=== PATIENT | female | born 1965 | race Caucasian/White ===

== ENCOUNTER 2021-02-07 14:18 | Observation (INO) | payer OTHER ==
[2021-02-07 16:13] VITALS: BMI 30.9
[2021-02-07] MEDS ORDERED: hydrALAZINE 20 MG/ML VIAL SLOW IVP PRN (16:31)
[2021-02-07] MEDS ORDERED: Dextrose 5% in Water 1,000 ML IV PRN (16:31)
[2021-02-07] MEDS ORDERED: Ondansetron PF 4 MG/2 ML Vial IVP PRN (16:31)
[2021-02-07] MEDS ORDERED: Ondansetron ODT 4 MG TAB PO PRN (16:31)
[2021-02-07] MEDS ORDERED: Dextrose 50% Abboject 50 ML SYRINGE SLOW IVP PRN (16:31)
[2021-02-07] MEDS ORDERED: HumaLOG 300 UNITS/3 ML VIAL SC PRN ×2 (16:31)
[2021-02-07] MEDS ORDERED: Ibuprofen 200 MG TAB PO PRN (16:31)
[2021-02-07] MEDS ORDERED: Acetaminophen 500 MG TAB PO PRN (16:31)
[2021-02-07 16:44] LABS: Troponin I 0.052 ng/mL (< 0.028)
[2021-02-07] MEDS: Famotidine 20 MG TAB PO SCH (20:53)
[2021-02-08 00:47] LABS: SARS-CoV-2 PCR by NAA Not Detected (NotDetected)
[2021-02-08 05:44] LABS: #Basophils 0.1 thou/uL (0.0-0.2); #Eosinphils 0.3 thou/uL (0.0-0.7); #Lymphocytes 2.3 thou/uL (1.20-3.40); #Monocytes 0.5 thou/uL (0.11-0.59); #Neutrophils 2.6 thou/uL (1.40-6.50); %Basophils 1.1 % (0.0-1.0); %Eosinophils 4.5 % (0.0-10.0); %Lymphocytes 40.4 % (21.0-51.0); %Monocytes 8.7 % (0.0-10.0); %Neutrophils 45.4 % (42.0-75.0); Hemoglobin 13.2 g/dL (12.0-16.0); Mean Corpuscular HGB CONC 32.7 g/dL (32.0-36.0); Mean Corpuscular Hemoglobin 29.1 pg (27.0-31.0); Mean Corpuscular Volume 88.9 fL (78.0-98.0); Mean Platelet Volume 8.8 fL (7.4-10.4); Platelet Count 117 thou/uL (130-400); RBC Distribution Width 13.8 % (11.5-14.5); Red Blood Cell (RBC) Count 4.53 mill/uL (4.20-5.40); White Blood Cell (WBC) Count 5.7 thou/uL (4.8-10.8)
[2021-02-08 05:59] LABS: Anion Gap 12 mmol/L (10-20); BUN (Urea Nitrogen) 12 mg/dL (9.8-20.1); Calc. Creatinine Clearance 133 mL/min (70-130); Calcium 9.2 mg/dL (7.8-10.44); Carbon Dioxide 21 mmol/L (22-29); Cardiac Risk 3.6 (Less than 4.5); Chloride 107 mmol/L (98-107); Cholesterol 192 mg/dl (< 200 Desired); Glucose 154 mg/dL (70-105); HDL Cholesterol 54 mg/dL (>60 Neg Risk); LDL Cholesterol, Calculated 124 mg/dL; Potassium 3.6 mmol/L (3.5-5.1); Sodium 136 mmol/L (136-145); Triglycerides 70 mg/dL (Less than 150)
[2021-02-08 08:02] VITALS: TEMP 98
[2021-02-08] MEDS ORDERED: Pioglitazone HCl 15 MG TAB PO SCH (09:00)
[2021-02-08] MEDS ORDERED: Aspirin Chewable 81 MG TAB PO SCH (09:00)
[2021-02-08] MEDS ORDERED: Alogliptin 25 MG TAB PO SCH (09:00)
[2021-02-08] MEDS ORDERED: ADENOSINE 60 MG/20 ML VIAL ONE (10:11)
[2021-02-08] MEDS: Famotidine 20 MG TAB PO SCH (15:25)
[2021-02-08 15:34] VITALS: BP 137/68
== END 2021-02-08 17:46 | disposition home or self-care (01) ==
LOC: 2SW 15:19 → INTOOBSV 16:31 → OBSVTOIN 16:31
PROVIDERS: ADMIT Family Medicine; ATTEND Hospitalist
DX: R07.89 Other chest pain (principal); E11.9 Type 2 diabetes mellitus without complications; K21.9 Gastro-esophageal reflux disease without esophagitis; K74.60 Unspecified cirrhosis of liver; E83.119 Hemochromatosis, unspecified; F15.11 Other stimulant abuse, in remission; F10.11 Alcohol abuse, in remission; Z79.84 Long term (current) use of oral hypoglycemic drugs; Z79.899 Other long term (current) drug therapy; Z88.0 Allergy status to penicillin; Z88.1 Allergy status to other antibiotic agents; Z20.822 Contact with and (suspected) exposure to COVID-19
CPT/HCPCS: 36415; 36416; 78452; 80048; 80061; 85025; 87635; 93017; 94760; A9500; G0378; J0153; U0003; U0005

== ENCOUNTER 2021-08-27 09:51 | Inpatient (IN) | payer OTHER ==
[2021-08-27] MEDS ORDERED: Iopamidol-370 76% 500 ML 1 ML ONE (10:14)
[2021-08-27 10:59] LABS: #Basophils 0.1 thou/uL (0.0-0.2); #Eosinphils 0.1 thou/uL (0.0-0.7); #Lymphocytes 1.6 thou/uL (1.20-3.40); #Monocytes 0.5 thou/uL (0.11-0.59); #Neutrophils 3.6 thou/uL (1.40-6.50); %Eosinophils 1.9 % (0.0-10.0); %Lymphocytes 27.7 % (21.0-51.0); %Monocytes 8.7 % (0.0-10.0); %Neutrophils 60.8 % (42.0-75.0); Hemoglobin 14.6 g/dL (12.0-16.0); Mean Corpuscular HGB CONC 34.1 g/dL (32.0-36.0); Mean Corpuscular Hemoglobin 31.2 pg (27.0-31.0); Mean Corpuscular Volume 91.5 fL (78.0-98.0); Mean Platelet Volume 8.7 fL (7.4-10.4); Platelet Count 104 thou/uL (130-400); RBC Distribution Width 13.7 % (11.5-14.5); Red Blood Cell (RBC) Count 4.68 mill/uL (4.20-5.40); White Blood Cell (WBC) Count 5.9 thou/uL (4.8-10.8)
[2021-08-27 11:23] LABS: ALT (SGPT) 90 U/L (8-55); AST (SGOT) 113 U/L (5-34); Albumin 3.7 g/dL (3.5-5.0); Alkaline Phosphatase 208 U/L (40-110); Anion Gap 14 mmol/L (10-20); BUN (Urea Nitrogen) 12 mg/dL (9.8-20.1); Bilirubin, Total 2.6 mg/dL (0.2-1.2); Calc. Creatinine Clearance 0 mL/min (70-130); Calcium 9.3 mg/dL (7.8-10.44); Carbon Dioxide 23 mmol/L (22-29); Chloride 107 mmol/L (98-107); Glucose 122 mg/dL (70-105); Lipase 19 U/L (8-78); Potassium 4.1 mmol/L (3.5-5.1); Protein, Total 7.7 g/dL (6.0-8.3); Sodium 140 mmol/L (136-145)
[2021-08-27] MEDS ORDERED: Ondansetron PF 4 MG/2 ML Vial ONE (11:45)
[2021-08-27] MEDS ORDERED: Morphine 4 MG/ML VIAL ONE (11:45)
[2021-08-27 12:20] LABS: Bilirubin Negative (Negative); Blood, Urine Negative (Negative); Clarity Clear (Clear); Glucose, Urine (Dipstick) 300 mg/dL (Negative); Ketone, Urine Negative (Negative); Leukocyte Negative Leu/uL (Negative); Nitrite Negative (Negative); Protein, Urine (Dipstick) 20 mg/dL (Neg-Trace); Specific Gravity, Urine 1.025 (1.002-1.036)
[2021-08-27] MEDS ORDERED: metroNIDAZOLE 500 MG in Premix Bag 1 BAG IVPB SCH ×2 (13:15→14:00)
[2021-08-27] MEDS ORDERED: Vancomycin HCl 25 MG/ML Oral PO SCH (13:15)
[2021-08-27] MEDS ORDERED: HumaLOG 300 UNITS/3 ML VIAL SC PRN (13:28)
[2021-08-27] MEDS ORDERED: Dextrose 5% in Water 1,000 ML IV PRN (13:28)
[2021-08-27] MEDS ORDERED: Dextrose 50% Abboject 50 ML SYRINGE SLOW IVP PRN (13:28)
[2021-08-27] MEDS: Sodium Chloride 0.9% 1,000 ML IV SCH (14:37)
[2021-08-27] MEDS: Morphine 4 MG/ML VIAL SLOW IVP PRN ×2 (15:40→20:09)
[2021-08-27 15:49] VITALS: BMI 31.2
[2021-08-27] MEDS: Vancomycin HCl 25 MG/ML Oral PO SCH (20:11)
[2021-08-27] MEDS: metroNIDAZOLE 500 MG TAB PO SCH (20:11)
[2021-08-28] MEDS: Vancomycin HCl 25 MG/ML Oral PO SCH ×5 (01:40→20:09)
[2021-08-28] MEDS: Morphine 4 MG/ML VIAL SLOW IVP PRN ×4 (04:20→20:08)
[2021-08-28] MEDS: Sodium Chloride 0.9% 1,000 ML IV SCH ×2 (04:22→15:14)
[2021-08-28] MEDS: metroNIDAZOLE 500 MG TAB PO SCH ×3 (05:07→20:09)
[2021-08-28 07:41] LABS: Anion Gap 11 mmol/L (10-20); BUN (Urea Nitrogen) 8 mg/dL (9.8-20.1); Calc. Creatinine Clearance 139 mL/min (70-130); Calcium 8.8 mg/dL (7.8-10.44); Carbon Dioxide 26 mmol/L (22-29); Chloride 107 mmol/L (98-107); Glucose 110 mg/dL (70-105); Potassium 3.5 mmol/L (3.5-5.1); Sodium 140 mmol/L (136-145)
[2021-08-28 07:49] LABS: #Eosinphils 0.2 thou/uL (0.0-0.7); #Lymphocytes 1.3 thou/uL (1.20-3.40); #Monocytes 0.6 thou/uL (0.11-0.59); #Neutrophils 2.6 thou/uL (1.40-6.50); %Basophils 0.8 % (0.0-1.0); %Eosinophils 3.3 % (0.0-10.0); %Neutrophils 54.9 % (42.0-75.0); Hemoglobin 13.2 g/dL (12.0-16.0); Mean Corpuscular Hemoglobin 31.5 pg (27.0-31.0); Mean Corpuscular Volume 92.7 fL (78.0-98.0); Mean Platelet Volume 9.2 fL (7.4-10.4); Platelet Count 89 thou/uL (130-400); RBC Distribution Width 13.9 % (11.5-14.5); Red Blood Cell (RBC) Count 4.21 mill/uL (4.20-5.40); White Blood Cell (WBC) Count 4.8 thou/uL (4.8-10.8)
[2021-08-28] MEDS: Enoxaparin Sodium 40 MG/0.4 ML SYRINGE SC SCH (09:26)
[2021-08-28] MEDS: Ondansetron PF 4 MG/2 ML Vial IVP PRN ×2 (09:45→18:12)
[2021-08-28 14:29] LABS: SARS-CoV-2 PCR by NAA Not Detected (NotDetected)
[2021-08-29] MEDS: Vancomycin HCl 25 MG/ML Oral PO SCH ×4 (02:03→20:19)
[2021-08-29] MEDS: Morphine 4 MG/ML VIAL SLOW IVP PRN ×4 (04:40→20:20)
[2021-08-29] MEDS: metroNIDAZOLE 500 MG TAB PO SCH ×3 (04:41→20:19)
[2021-08-29 07:06] LABS: #Eosinphils 0.2 thou/uL (0.0-0.7); #Lymphocytes 1.4 thou/uL (1.20-3.40); #Monocytes 0.5 thou/uL (0.11-0.59); #Neutrophils 2.1 thou/uL (1.40-6.50); %Eosinophils 3.8 % (0.0-10.0); %Lymphocytes 32.7 % (21.0-51.0); %Monocytes 11.3 % (0.0-10.0); %Neutrophils 51.2 % (42.0-75.0); Hemoglobin 13.2 g/dL (12.0-16.0); Mean Corpuscular HGB CONC 33.9 g/dL (32.0-36.0); Mean Corpuscular Hemoglobin 31.6 pg (27.0-31.0); Mean Corpuscular Volume 93.1 fL (78.0-98.0); Mean Platelet Volume 8.9 fL (7.4-10.4); Platelet Count 91 thou/uL (130-400); RBC Distribution Width 13.6 % (11.5-14.5); Red Blood Cell (RBC) Count 4.18 mill/uL (4.20-5.40); White Blood Cell (WBC) Count 4.2 thou/uL (4.8-10.8)
[2021-08-29 07:11] LABS: Anion Gap 10 mmol/L (10-20); BUN (Urea Nitrogen) 7 mg/dL (9.8-20.1); Calc. Creatinine Clearance 147 mL/min (70-130); Calcium 8.6 mg/dL (7.8-10.44); Carbon Dioxide 24 mmol/L (22-29); Chloride 108 mmol/L (98-107); Glucose 104 mg/dL (70-105); Potassium 3.4 mmol/L (3.5-5.1); Sodium 139 mmol/L (136-145)
[2021-08-29] MEDS: Enoxaparin Sodium 40 MG/0.4 ML SYRINGE SC SCH (09:38)
[2021-08-29] MEDS: Sodium Chloride 0.9% 1,000 ML IV SCH ×2 (09:41→20:21)
[2021-08-29] MEDS: Ondansetron PF 4 MG/2 ML Vial IVP PRN (09:50)
[2021-08-30] MEDS: Morphine 4 MG/ML VIAL SLOW IVP PRN ×4 (01:46→23:37)
[2021-08-30] MEDS: Vancomycin HCl 25 MG/ML Oral PO SCH ×4 (01:46→21:05)
[2021-08-30] MEDS: metroNIDAZOLE 500 MG TAB PO SCH ×3 (05:08→21:05)
[2021-08-30 06:35] LABS: #Basophils 0.1 thou/uL (0.0-0.2); #Eosinphils 0.2 thou/uL (0.0-0.7); #Lymphocytes 1.7 thou/uL (1.20-3.40); #Monocytes 0.5 thou/uL (0.11-0.59); #Neutrophils 1.9 thou/uL (1.40-6.50); %Basophils 1.4 % (0.0-1.0); %Eosinophils 3.8 % (0.0-10.0); %Lymphocytes 38.6 % (21.0-51.0); %Neutrophils 44.2 % (42.0-75.0); Hemoglobin 13.4 g/dL (12.0-16.0); Mean Corpuscular HGB CONC 33.6 g/dL (32.0-36.0); Mean Corpuscular Hemoglobin 31.3 pg (27.0-31.0); Mean Corpuscular Volume 93.2 fL (78.0-98.0); Mean Platelet Volume 8.9 fL (7.4-10.4); Platelet Count 99 thou/uL (130-400); RBC Distribution Width 13.8 % (11.5-14.5); Red Blood Cell (RBC) Count 4.27 mill/uL (4.20-5.40); White Blood Cell (WBC) Count 4.4 thou/uL (4.8-10.8)
[2021-08-30 06:49] LABS: Anion Gap 9 mmol/L (10-20); BUN (Urea Nitrogen) 6 mg/dL (9.8-20.1); Calc. Creatinine Clearance 143 mL/min (70-130); Calcium 8.7 mg/dL (7.8-10.44); Carbon Dioxide 27 mmol/L (22-29); Chloride 105 mmol/L (98-107); Glucose 93 mg/dL (70-105); Potassium 3.4 mmol/L (3.5-5.1); Sodium 138 mmol/L (136-145)
[2021-08-30] MEDS: Enoxaparin Sodium 40 MG/0.4 ML SYRINGE SC SCH (08:23)
[2021-08-30] MEDS: Ondansetron PF 4 MG/2 ML Vial IVP PRN ×2 (08:32→18:29)
[2021-08-30] MEDS ORDERED: Potassium Chloride 20 MEQ TAB PO SCH (09:45)
[2021-08-30] MEDS: Sodium Chloride 0.9% 1,000 ML IV SCH ×2 (13:32→23:37)
[2021-08-31] MEDS: Morphine 4 MG/ML VIAL SLOW IVP PRN ×3 (04:22→15:37)
[2021-08-31] MEDS: Vancomycin HCl 25 MG/ML Oral PO SCH ×3 (04:22→13:07)
[2021-08-31] MEDS: metroNIDAZOLE 500 MG TAB PO SCH ×2 (04:22→13:08)
[2021-08-31 07:50] LABS: #Eosinphils 0.2 thou/uL (0.0-0.7); #Lymphocytes 1.5 thou/uL (1.20-3.40); #Monocytes 0.7 thou/uL (0.11-0.59); #Neutrophils 2.8 thou/uL (1.40-6.50); %Basophils 0.9 % (0.0-1.0); %Eosinophils 3.1 % (0.0-10.0); %Lymphocytes 28.5 % (21.0-51.0); %Monocytes 13.7 % (0.0-10.0); %Neutrophils 53.7 % (42.0-75.0); Hemoglobin 13.9 g/dL (12.0-16.0); Mean Corpuscular HGB CONC 34.6 g/dL (32.0-36.0); Mean Corpuscular Hemoglobin 32.4 pg (27.0-31.0); Mean Corpuscular Volume 93.6 fL (78.0-98.0); Mean Platelet Volume 8.7 fL (7.4-10.4); Platelet Count 94 thou/uL (130-400); RBC Distribution Width 13.9 % (11.5-14.5); Red Blood Cell (RBC) Count 4.31 mill/uL (4.20-5.40); White Blood Cell (WBC) Count 5.3 thou/uL (4.8-10.8)
[2021-08-31 09:05] LABS: Chloride 105 mmol/L (98-107); Potassium 3.6 mmol/L (3.5-5.1); Sodium 140 mmol/L (136-145)
[2021-08-31 09:06] LABS: Calcium 9.2 mg/dL (7.8-10.44); Glucose 116 mg/dL (70-105)
[2021-08-31 09:07] LABS: Anion Gap 13 mmol/L (10-20); Carbon Dioxide 26 mmol/L (22-29)
[2021-08-31 09:09] LABS: Calc. Creatinine Clearance 131 mL/min (70-130)
[2021-08-31 09:10] LABS: BUN (Urea Nitrogen) 5 mg/dL (9.8-20.1)
[2021-08-31 09:12] VITALS: BP 107/64; TEMP 98.8
[2021-08-31] MEDS: Enoxaparin Sodium 40 MG/0.4 ML SYRINGE SC SCH (09:29)
[2021-08-31] MEDS: Ondansetron PF 4 MG/2 ML Vial IVP PRN (13:07)
== END 2021-08-31 15:58 | disposition home or self-care (01) | DRG 373 ==
LOC: ERS 09:51 → T4-A 12:59 → OBSVTOIN 08-28 11:18
PROVIDERS: ADMIT Internal Medicine; ATTEND Internal Medicine
DX: A04.72 Enterocolitis due to Clostridium difficile, not specified as recurrent (principal); Z20.822 Contact with and (suspected) exposure to COVID-19; K75.81 Nonalcoholic steatohepatitis (NASH); K74.60 Unspecified cirrhosis of liver; E11.9 Type 2 diabetes mellitus without complications; Z88.1 Allergy status to other antibiotic agents; Z88.0 Allergy status to penicillin; Z88.8 Allergy status to other drugs, medicaments and biological substances; Z79.899 Other long term (current) drug therapy; Z79.84 Long term (current) use of oral hypoglycemic drugs; Z79.82 Long term (current) use of aspirin; Z90.49 Acquired absence of other specified parts of digestive tract; Z90.710 Acquired absence of both cervix and uterus; Z90.89 Acquired absence of other organs
CPT/HCPCS: 36415; 36416; 71045; 74177; 80048; 80053; 81003; 83690; 85025; 87045; 87046; 87324; 87427; 87449; 93005; 96372; 96375; 96376; G0378; J1650; J1815; J2270; J2405; J7050; Q9967; U0003; U0005

== ENCOUNTER 2021-11-09 20:42 | Emergency (ER) | payer OTHER ==
[2021-11-09] MEDS ORDERED: Ondansetron ODT 4 MG TAB ONE (21:39)
[2021-11-10 15:27] LABS: SARS-CoV-2 PCR by NAA DETECTED (NotDetected)
== END 2021-11-09 22:38 | disposition home or self-care (01) ==
LOC: ERS 20:42
DX: U07.1 COVID-19 (principal); E11.9 Type 2 diabetes mellitus without complications; Z87.19 Personal history of other diseases of the digestive system; Z79.899 Other long term (current) drug therapy
CPT/HCPCS: 99284; Q0162; U0003; U0005